=== PATIENT | male | born 1955 | race Hispanic/Latino ===

== ENCOUNTER 2017-06-27 22:03 | Observation (INO) | payer BC ==
[2017-06-27] MEDS ORDERED: Multivitamin (MVI) 10 ML, Thiamine 100 MG, Folic Acid 1 MG in Dextrose 5%/0.45% NS 1,00... IV ONE (22:52)
--- NOTE | 2017-06-27 23:33 | ED PDOC ---
HPI: General Adult Time Seen by Provider: 06/27/17 22:19 Chief Complaint (Nursing): Alcohol Ingestion History Per: Patient Additional Complaint(s): Pt. states since 12/2016 he's been drinking daily as his that month. States today at approximately 1345 he drank then went to sleep. He woke up at approximately 1630 and got up from bed and felt dizzy which caused him to fall down 3 times. States he was able to get up on his own and did not injure his head or any other part of his body during the fall. States since then he's been dizzy but dizziness has improved. Dizziness is described as a feeling of the room spinning and himself spinning. States he does take a BP med that starts with the letter "O" which he took this morning. Admits to 1 episode of non-bloody vomiting without abdominal pain. Denies abdominal pain, chest pain, SOB, hematemesis, diarrhea, head injury, LOC, SI/HI, hallucinations. Past Medical History Reviewed: Historical Data, Nursing Documentation, Vital Signs Vital Signs: Last Vital Signs Temp 98.2 F 06/28/17 05:47 Pulse 78 06/28/17 05:57 Resp 18 06/28/17 05:47 BP 168/102 H 06/28/17 05:57 Pulse Ox 95 06/28/17 05:47 - Medical History PMH: HTN, Hypercholesterolemia - Surgical History Surgical History: No Surg Hx - Family History Family History: States: No Known Family Hx - Home Medications Home Medications: Ambulatory Orders Medication Instructions Recorded Aspirin [Aspirin] 325 mg PO DAILY 08/24/14 Esomeprazole Magnesium [Nexium 20 mg PO DAILY 08/24/14 24Hr] Olmesartan Medoxomil [Benicar] 5 mg PO DAILY 08/24/14 - Allergies Allergies/Adverse Reactions: Allergies Allergy/AdvReac Type Severity Reaction Status Date / Time No Known Allergies Allergy Verified 08/24/14 21:17 Review of Systems ROS Statement: Except As Marked, All Systems Reviewed And Found Negative Gastrointestinal: Positive for: Nausea, Vomiting Neurological: Positive for: Headache, Dizziness Physical Exam - Reviewed Nursing Documentation Reviewed: Yes Vital Signs Reviewed: Yes - Physical Exam Appears: Positive for: Well, Non-toxic, No Acute Distress Head Exam: Positive for: ATRAUMATIC, NORMAL INSPECTION, NORMOCEPHALIC Skin: Positive for: Normal Color, Warm. Negative for: Rash Eye Exam: Positive for: Normal appearance, EOMI, PERRL. Negative for: Nystagmus , Periorbital swelling, Periorbital tenderness ENT: Positive for: Normal ENT Inspection Neck: Positive for: Normal, Painless ROM Cardiovascular/Chest: Positive for: Chest Non Tender, Tachycardia. Negative for : Murmur, Irregularly Irregular Respiratory: Positive for: CNT, Normal Breath Sounds Gastrointestinal/Abdominal: Positive for: Normal Exam, Bowel Sounds, Soft, Other (no ecchymosis). Negative for: Tenderness Back: Positive for: Normal Inspection. Negative for: L CVA Tenderness, R CVA Tenderness, Vertebral Tenderness (including cervical spine) Extremity: Positive for: Normal ROM Neurologic/Psych: Positive for: Alert, Oriented. Negative for: Aphasia, Facial Droop - Laboratory Results Result Diagrams: 06/27/17 23:23 06/27/17 23:23 - ECG ECG: Positive for: Interpreted By Me ECG Rhythm: Positive for: Sinus Rhythm. Negative for: ST/T Changes Rate: 98 O2 Sat by Pulse Oximetry: 97 - Radiology X-Ray: Interpreted by Me (CXR) X-Ray Interpretation: No Acute Disease - Progress ED Course And Treament: Labs, CT head w/o contrast, visitor services representative, CXR, clonidine 0.1mg PO, banana bag , crisis eval ordered. Case d/w Dr. Martins who agrees with care. 0007 CT head w/o contrast: No acute intracranial abnormality. Chronic right basal ganglia lacunar infarct. 0155 Pt. evaluated by Pari, community arts worker, who spoke with Dr. Savage and cleared pt. for discharge. On re-evaluation, pt. reports feeling lightheaded. Repeat BP: 165/102; HR: 103. Denies chest pain, SOB. Gait steady, unassisted. Labetalol 20mg IVP ordered. No tremors. Case d/w Dr. Martins who recommends admission due o pt.'s risk factors and continued symptoms and elevated BP. 0600 Case d/w Dr. Negro and arrangements made for admission. Disposition - Clinical Impression Clinical Impression: Alcohol abuse with intoxication, Depression, Hypertensive urgency - Patient ED Disposition Is Patient to be Admitted: No - Disposition Disposition: Routine/Home Disposition Time: 02:28 Condition: IMPROVED
[2017-06-27 23:43] LABS: BASO % 0.6 % (0.0-2.0); EOS % 0.1 % (0.0-4.0); HEMOGLOBIN 12.5 g/dL (12.0-18.0); LYMPH # 0.6 K/uL (1.0-4.3); LYMPH % 7.7 % (20.0-40.0); MEAN CELL VOLUME 93.6 fl (80.0-94.0); MEAN CORPUSCULAR HEMOGLOBIN 31.6 pg (27.0-31.0); MEAN CORPUSCULAR HGB CONC 33.7 g/dL (33.0-37.0); MEAN PLATELET VOLUME 8.5 fl (7.2-11.7); MONO # 0.6 K/uL (0.0-0.8); MONO % 7.9 % (0.0-10.0); NEUT # 6.3 K/uL (1.8-7.0); NEUT % 83.7 % (50.0-75.0); NRBC % 0.1 % (0.0-0.0); PLATELET COUNT 214 K/uL (130-400); RBC 3.97 Mil/uL (4.40-5.90); RED CELL DISTRIBUTION WIDTH 14.6 % (11.5-14.5); WHITE BLOOD COUNT 7.5 K/uL (4.8-10.8)
[2017-06-27 23:49] LABS: ALB/GLOB RATIO 1.3 (1.0-2.1); ALBUMIN 4.5 g/dL (3.5-5.0); ALT/SGPT 101 U/L (21-72); AST/SGOT 101 U/L (17-59); BLOOD UREA NITROGEN 27 mg/dl (9-20); CALCIUM 9.6 mg/dL (8.4-10.2); GFR AFRICAN-AMERICAN > 60; GFR NON-AFRICAN AMERICAN 51
--- NOTE | 2017-06-28 00:07 | CT ---
EXAM: CT Head Without Intravenous Contrast CLINICAL HISTORY: 62 years old, male; Signs and symptoms; Dizziness; Patient HX: See phys doc TECHNIQUE: Axial computed tomography images of the head/brain without intravenous contrast. All CT scans at this facility use one or more dose reduction techniques, viz.: automated exposure control; ma/kV adjustment per patient size (including targeted exams where dose is matched to indication; i.e. head); or iterative reconstruction technique. Coronal and sagittal reformatted images were created and reviewed. COMPARISON: No relevant prior studies available. FINDINGS: Brain: There is mild diffuse cerebral atrophy present, consistent with this patient's age. No hemorrhage. No significant white matter disease. Chronic right basal ganglia lacunar infarct. Ventricles: The ventricular system demonstrates mild diffuse compensatory enlargement. Bones/joints: Unremarkable. No acute fracture. Soft tissues: Unremarkable. Sinuses: Unremarkable as visualized. No acute sinusitis. Mastoid air cells: Unremarkable as visualized. No mastoid effusion. IMPRESSION: No acute intracranial abnormality. Chronic right basal ganglia lacunar infarct.
[2017-06-28 00:30] LABS: BANDS 1 % (0-2); LYMPHOCYTE 11 % (20-50); MONOCYTE 5 % (0-10); NEUTROPHIL 81 % (42-75); PLATELET ESTIMATE NORMAL (NORMAL); REACTIVE LYMPHOCYTES 2 % (0-0); TOTAL CELLS COUNTED 100
[2017-06-28 00:31] LABS: HYPOCHROMIC SLIGHT; LARGE PLATELETS PRESENT; TOXIC GRANULATION PRESENT
[2017-06-28] MEDS ORDERED: Labetalol 5 mg/ml Inj 20ML IVP STA (02:30)
[2017-06-28 02:55] LABS: URINE BILIRUBIN NEGATIVE (NEGATIVE); URINE BLOOD NEGATIVE (NEGATIVE); URINE CLARITY CLEAR (Clear); URINE COLOR YELLOW (YELLOW); URINE GLUCOSE (UA) NEG (Normal); URINE LEUKOCYTE ESTERASE NEG Leu/uL (Negative); URINE PROTEIN 100 mg/dL (NEGATIVE)
[2017-06-28] MEDS ORDERED: Influenza Vaccine 18yr & older 0.5 ML/45 MCG SYR IM ONE (09:00)
[2017-06-28] MEDS ORDERED: Pneumococcal 23-Valent Vaccine IM ONE (09:00)
[2017-06-28] MEDS: Pantoprazole 40 mg EC Tab PO SCH (09:16)
--- NOTE | 2017-06-28 09:54 | RAD ---
HISTORY: clearance COMPARISON: No prior. FINDINGS: LUNGS: No active pulmonary disease. PLEURA: No significant pleural effusion identified, no pneumothorax apparent. CARDIOVASCULAR: Normal. OSSEOUS STRUCTURES: No significant abnormalities. VISUALIZED UPPER ABDOMEN: Normal. OTHER FINDINGS: None. IMPRESSION: No active disease.
--- NOTE | 2017-06-28 14:55 | CARD ---
APPROVED REPORT EKG Measurement Heart [id number] <Conclusion> Normal sinus rhythm Possible Left atrial enlargement Borderline ECG
--- NOTE | 2017-06-28 17:53 | CP.PCM.HP ---
History of Present Illness - History of Present Illness History of Present Illness: This is a 62 y/o male admitted for severe dizziness and multiple episodes of fall at home. He claims that he has been drinking significant amount of alcoholic beverages since his passed few months ago. He claims that he tends to binge on the weekends. Past Patient History - Past Medical History & Family History Past Medical History?: Yes - Past Social History Smoking Status: Former Smoker - CARDIAC Hx Hypercholesterolemia: Yes Hx Hypertension: Yes - PULMONARY Hx Tuberculosis: No - NEUROLOGICAL HX Cerebrovascular Accident: No Hx Seizures: No - HEMATOLOGICAL/ONCOLOGICAL Hx Cancer: No Hx Human Immunodeficiency Virus (HIV): No - MUSCULOSKELETAL/RHEUMATOLOGICAL Hx Falls: Yes - GASTROINTESTINAL Hx Gastroesophageal Reflux: Yes - GENITOURINARY/GYNECOLOGICAL Hx Sexually Transmitted Disorders: No - PSYCHIATRIC Hx Substance Use: Yes (cocaine) - SURGICAL HISTORY Hx Surgeries: No - ANESTHESIA Hx Anesthesia: No Meds Allergies/Adverse Reactions: Allergies Allergy/AdvReac Type Severity Reaction Status Date / Time No Known Allergies Allergy Verified 08/24/14 21:17 Results - Vital Signs Recent Vital Signs: Last Vital Signs Temp 99.0 F 06/28/17 17:02 Pulse 76 06/28/17 17:02 Resp 18 06/28/17 17:02 BP 143/83 06/28/17 17:02 Pulse Ox 98 06/28/17 17:02 - Labs Result Diagrams: 06/27/17 23:23 06/27/17 23:23 Labs: Laboratory Results - last 24 hr 06/27/17 06/27/17 06/27/17 23:23 23:23 23:23 WBC 7.5 RBC 3.97 L Hgb 12.5 Hct 37.2 MCV 93.6 MCH 31.6 H MCHC 33.7 RDW 14.6 H Plt Count 214 MPV 8.5 Neut % (Auto) 83.7 H Lymph % (Auto) 7.7 L [place] % (Auto) 7.9 Eos % (Auto) 0.1 Baso % (Auto) 0.6 Neut # (Auto) 6.3 Lymph # (Auto) 0.6 L [place] # (Auto) 0.6 Eos # (Auto) 0.0 Baso # (Auto) 0.0 Neutrophils % (Manual) 81 H Band Neutrophils % 1 Lymphocytes % (Manual) 11 L Reactive Lymphs % 2 H Monocytes % (Manual) 5 Toxic Granulation Present Platelet Estimate Normal Large Platelets Present Hypochromasia (manual) Slight Sodium 142 Potassium 4.5 Chloride 96 L Carbon Dioxide 24 Anion Gap 27 H BUN 27 H Creatinine 1.4 Est GFR ( Amer) > 60 Est GFR (Non-Af Amer) 51 Random Glucose 81 Calcium 9.6 Total Bilirubin 0.9 AST 101 H ALT 101 H Alkaline Phosphatase 95 Troponin I 0.0440 Total Protein 7.9 Albumin 4.5 Globulin 3.4 Albumin/Globulin Ratio 1.3 Urine Color Yellow Urine Clarity Clear Urine pH 6.0 Ur Specific [place] 1.024 Urine Protein 100 Urine Glucose (UA) Neg Urine Ketones 20 Urine Blood Negative Urine Nitrate Negative Urine Bilirubin Negative Urine Urobilinogen 2.0 Ur Leukocyte Esterase Neg Urine RBC (Auto) 5 H Urine Microscopic WBC 1 Alcohol, Quantitative 46 H
[2017-06-29 08:10] VITALS: RESP 18
[2017-06-29] MEDS: Pantoprazole 40 mg EC Tab PO SCH (08:34)
--- NOTE | 2017-06-29 09:16 | CP.PCM.DIS ---
Provider - Provider Date of Admission: 06/28/17 02:31 Attending physician: Juwan Negro MD Hospital Course - Lab Results Lab Results: Most Recent Lab Values WBC 7.5 K/uL (4.8-10.8) 06/27/17 23: RBC 3.97 Mil/uL (4.40-5.90) L 06/27/17 23:23 Hgb 12.5 g/dL (12.0-18.0) 06/27/17 23: Hct 37.2 % (35.0-51.0) 06/27/17 23:23 MCV 93.6 fl (80.0-94.0) 06/27/17 23: MCH 31.6 pg (27.0-31.0) H 06/27/17 23: MCHC 33.7 g/dL (33.0-37.0) 06/27/17 23: RDW 14.6 % (11.5-14.5) H 06/27/17: Plt Count 214 K/uL (130-400) 06/27/17 23:23 MPV 8.5 fl (7.2-11.7) 06/27/17 23:23 Neut % (Auto) 83.7 % (50.0-75.0) H 06/27/17 23:23 Lymph % (Auto) 7.7 % (20.0-40.0) L 06/27/17 23:23 [place] % (Auto) 7.9 % (0.0-10.0) 06/27/17: Eos % (Auto) 0.1 % (0.0-4.0) 06/27/17 23:23 Baso % (Auto) 0.6 % (0.0-2.0) 06/27/17 23:23 Neut # (Auto) 6.3 K/uL (1.8-7.0) 06/27/17 23:23 Lymph # (Auto) 0.6 K/uL (1.0-4.3) L 06/27/17 23:23 [place] # (Auto) 0.6 K/uL (0.0-0.8) 06/27/17 23:23 Eos # (Auto) 0.0 K/uL (0.0-0.7) 06/27/17 23:23 Baso # (Auto) 0.0 K/uL (0.0-0.2) 06/27/17 23:23 Neutrophils % (Manual) 81 % (42-75) H 06/27/17 23:23 Band Neutrophils % 1 % (0-2) 06/27/17 23:23 Lymphocytes % (Manual) 11 % (20-50) L 06/27/17 23:23 Reactive Lymphs % 2 % (0-0) H 06/27/17 23:23 Monocytes % (Manual) 5 % (0-10) 06/27/17 23:23 Toxic Granulation Present 06/27/17 23:23 Platelet Estimate Normal (NORMAL) 06/27/17 23:23 Large Platelets Present 06/27/17 23:23 Hypochromasia (manual) Slight 06/27/17 23:23 Sodium 142 mmol/l (132-148) 06/27/17 23:23 Potassium 4.5 MMOL/L (3.6-5.0) 06/27/17 23:23 Chloride 96 mmol/L (98-107) L 06/27/17 23:23 Carbon Dioxide 24 mmol/L (22-30) 06/27/17 23:23 Anion Gap 27 (10-20) H 06/27/17 23:23 BUN 27 mg/dl (9-20) H 06/27/17 23:23 Creatinine 1.4 mg/dl (0.8-1.5) 06/27/17 23:23 Est GFR ( Amer) > 60 06/27/17 23:23 Est GFR (Non-Af Amer) 51 06/27/17 23:23 Random Glucose 81 mg/dL (75-110) 06/27/17 23:23 Calcium 9.6 mg/dL (8.4-10.2) 06/27/17 23:23 Total Bilirubin 0.9 mg/dl (0.2-1.3) 06/27/17 23:23 AST 101 U/L (17-59) H 06/27/17 23:23 ALT 101 U/L (21-72) H 06/27/17 23:23 Alkaline Phosphatase 95 U/L (38-126) 06/27/17 23:23 Troponin I 0.0440 ng/mL (0.00-0.120) 06/27/17 23:23 Total Protein 7.9 G/DL (6.3-8.2) 06/27/17 23:23 Albumin 4.5 g/dL (3.5-5.0) 06/27/17 23:23 Globulin 3.4 gm/dL (2.2-3.9) 06/27/17 23:23 Albumin/Globulin Ratio 1.3 (1.0-2.1) 06/27/17 23:23 Urine Color Yellow (YELLOW) 06/27/17 23:23 Urine Clarity Clear (Clear) 06/27/17 23:23 Urine pH 6.0 (5.0-8.0) 06/27/17 23:23 Ur Specific [place] 1.024 (1.003-1.030) 06/27/17 23:23 Urine Protein 100 mg/dL (NEGATIVE) 06/27/17 23:23 Urine Glucose (UA) Neg mg/dL (Normal) 06/27/17 23: Urine Ketones 20 mg/dL (NEGATIVE) 06/27/17 23:23 Urine Blood Negative (NEGATIVE) 06/27/17 23:23 Urine Nitrate Negative (NEGATIVE) 06/27/17 23:23 Urine Bilirubin Negative (NEGATIVE) 06/27/17 23:23 Urine Urobilinogen 2.0 mg/dL (0.2-1.0) 06/27/17 23:23 Ur Leukocyte Esterase Neg [place]orie/uL (Negative) 06/27/17 23:23 Urine RBC (Auto) 5 /hpf (0-3) H 06/27/17 23:23 Urine Microscopic WBC 1 /hpf (0-5) 06/27/17 23:23 Alcohol, Quantitative 46 mg/dl (0-10) H 06/27/17 23:23 - Hospital Course Hospital Course: This is a 62 y/o male admitted for severe dizziness. Noted to have HTN He has been taking alcoholic beverages heavily for the past few months mostly binging on the weekends. Noted to have elevated AST ALT. He was maintained on Metoprolol and amlodipine Discharge Exam - Head Exam Head Exam: ATRAUMATIC, NORMAL INSPECTION, NORMOCEPHALIC Discharge Plan - Follow Up Plan Condition: IMPROVED Disposition: HOME/ ROUTINE Instructions: Depression, Adult (DC), High Blood Pressure (DC), Alcohol Abuse and Alcoholism (DC) Referrals: [facility] [Outside]
[2017-06-29 16:28] VITALS: BP 165/89; PULSE 83; TEMP 98.9; O2SAT 98
== END 2017-06-29 17:20 | disposition home or self-care (01) ==
LOC: H.ER 22:03 → H.ERHOLD 06-28 02:31 → H.TEL 06-28 05:04
PROVIDERS: ADMIT Family Medicine; ATTEND Family Medicine
DX: F10.129 Alcohol abuse with intoxication, unspecified (principal); Z23 Encounter for immunization; E78.00 Pure hypercholesterolemia, unspecified; F32.9 Major depressive disorder, single episode, unspecified; I10 Essential (primary) hypertension; I16.0 Hypertensive urgency; K21.9 Gastro-esophageal reflux disease without esophagitis; Z79.82 Long term (current) use of aspirin; Z87.891 Personal history of nicotine dependence; Z91.81 History of falling
CPT/HCPCS: 70450; 71045; 80053; 81003; 84484; 85025; 90732; 93005; 96360; 96361; 96374; 99285; G0008; G0009; G0378; G0480; J3411; J7042; Q2035

== ENCOUNTER 2018-03-16 01:47 | Emergency (ER) | payer BC ==
[2018-03-16 01:58] VITALS: BMI 25.7
[2018-03-16 02:01] VITALS: BP 116/78; PULSE 105; RESP 18; TEMP 98.5; O2SAT 98
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
[2018-03-16 02:32] LABS: BASO # 0.1 K/uL (0.0-0.2); BASO % 0.8 % (0.0-2.0); EOS # 0.1 K/uL (0.0-0.7); EOS % 1.4 % (0.0-4.0); HEMOGLOBIN 12.4 g/dL (12.0-18.0); LYMPH # 2.2 K/uL (1.0-4.3); LYMPH % 30.1 % (20.0-40.0); MEAN CELL VOLUME 89.9 fl (80.0-94.0); MEAN CORPUSCULAR HEMOGLOBIN 29.2 pg (27.0-31.0); MEAN CORPUSCULAR HGB CONC 32.5 g/dL (33.0-37.0); MEAN PLATELET VOLUME 8.8 fl (7.2-11.7); MONO # 0.9 K/uL (0.0-0.8); MONO % 12.1 % (0.0-10.0); NEUT # 4.1 K/uL (1.8-7.0); NEUT % 55.6 % (50.0-75.0); NRBC % 0.3 % (0.0-0.0); RBC 4.23 Mil/uL (4.40-5.90); WHITE BLOOD COUNT 7.4 K/uL (4.8-10.8)
[2018-03-16 02:37] LABS: ALB/GLOB RATIO 1.2 (1.0-2.1)
[2018-03-16 02:38] LABS: ALBUMIN 4.3 g/dL (3.5-5.0); ALT/SGPT 55 U/L (21-72); AST/SGOT 77 U/L (17-59); BLOOD UREA NITROGEN 16 mg/dl (9-20); CALCIUM 9.2 mg/dL (8.4-10.2); GFR NON-AFRICAN AMERICAN 56
== END 2018-03-16 03:09 | disposition home or self-care (01) ==
LOC: H.ER 01:47
DX: F10.10 Alcohol abuse, uncomplicated (principal); E78.00 Pure hypercholesterolemia, unspecified; I10 Essential (primary) hypertension
CPT/HCPCS: 80053; 82948; 85025; 99282; G0480